=== PATIENT | female | born 1995 | race Two or more races ===

== ENCOUNTER 2022-07-10 20:50 | Emergency (ER) | payer MEDICAID ==
[~2022-07-10] VITALS: Ht 165.1 cm; Wt 64.0 kg
[2022-07-10] MEDS ORDERED: PRED20TA2 PO (21:34)
[2022-07-10 23:00] VITALS: BP 131/81
== END 2022-07-10 23:08 | disposition home or self-care (01) ==
LOC: ER 20:50
DX: H69.83 Other specified disorders of Eustachian tube, bilateral (principal)